=== PATIENT | female | born 2000 | race Hispanic/Latino ===

== ENCOUNTER 2023-06-26 13:47 | Emergency (ER) | payer SELFPAY ==
[2023-06-26 14:04] LABS: Absolute Eosinophils 0.1 K/uL (0-0.5); Absolute Lymphocytes (CBC) 1.5 K/uL (0.7-4.9); Absolute Monocytes 0.7 K/uL (0.1-1.3); Absolute Neutrophil 6.8 K/uL (1.8-8.0); Basophils % 0.4 % (0-1.3); Eosinophils % 1.3 % (0-4.4); Hematocrit 34.8 % (36.0-45.0); Hemoglobin 11.6 g/dL (12.0-15.0); Lymphocytes % 16.8 % (15.3-44.8); MCH 26.7 pg (27.0-35.0); MCHC 33.3 g/dL (32.0-36.0); MCV 80.3 fL (80-100); MPV 9.1 fL (7.6-11.3); Monocytes % 7.7 % (3.3-12.3); Neutrophils % 73.8 % (41.7-73.7); Platelets 225 thou/uL (152-406); RBC Red Blood Cell Count 4.34 M/uL (3.86-4.86); Red Cell Distribution Width 13.3 % (12.1-15.2)
--- NOTE | 2023-06-26 14:11 | RAD REPORT ---
EXAM DESCRIPTION: Alisa Single View06/26/2023 2:01 pm CLINICAL HISTORY: CHEST PAIN COMPARISON: None TECHNIQUE: Portable AP view of the chest. FINDINGS: The lungs are clear. No pneumothorax or effusion. The cardiomediastinal contours are unre markable. IMPRESSION: No acute cardiopulmonary process.
[2023-06-26] MEDS ORDERED: MECLIZINE HCL 12.5 MG TAB ONE (14:18)
[2023-06-26 14:29] LABS: Anion Gap 10.2 mEq/L (5.0-15.0); BUN Blood Urea Nitrogen 11 mg/dL (7-18); Bicarbonate 24 mEq/L (21-32); Glomerular Filtration Rate 116 ml/min (=/>90); Glucose Level 98 mg/dL (74-106); Magnesium 1.9 mg/dL (1.6-2.4); Potassium 3.2 mEq/L (3.5-5.1); Sodium Level 136 mEq/L (136-145)
[2023-06-26 14:35] LABS: Troponin High Sensitivity < 3.0 pg/mL (<58.9)
--- NOTE | 2023-06-26 14:44 | ER ---
Nurse's Notes [facility] Name: Chio Hough Age: 22 yrs Sex: Female : 2000 Arrival Date: 06/26/2023 Time: 13:47 Bed 16 Private MD: Diagnosis: Dizziness and giddiness Presentation: 06/25 13:50 Chief complaint: EMS states: reports chest pain that has since resolved. Coronavirus cp4 screen: Client denies travel out of the [place] in the last 14 days. At this time, the client does not indicate any symptoms associated with coronavirus-19. Ebola Screen: Patient negative for fever greater than or equal to 101.5 degrees Fahrenheit, and additional compatible Ebola Virus Disease symptoms Patient denies exposure to infectious person. Patient denies travel to an Ebola-affected area in the 21 days before illness onset. No symptoms or risks identified at this time. Initial Sepsis Screen: Does the patient meet any 2 criteria? No. Patient's initial sepsis screen is negative. Does the patient have a suspected source of infection? No. Patient's initial sepsis screen is negative. Risk Assessment: Do you want to hurt yourself or someone else? Patient reports no desire to harm self or others. Onset of symptoms was June 26, 2023. 13:50 Method Of Arrival: EMS: [facility] 4 13:50 Acuity: RAO 3 cp4 Triage Assessment: 13:51 General: Appears uncomfortable, Behavior is calm, cooperative, appropriate for age. cp4 Pain: Denies pain. Cardiovascular: Reports lightheadedness. 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 - Infectious Disease History:: Denies. CDIFF, C. Auris, ESBL, MRSA (w/in 1 year), VRE (w/in 1 year), TB, . - Social history:: Smoking status: Patient denies any tobacco usage or history of. Screenin:52 [facility] ED Fall Risk Assessment (Adult) History of falling in the last 3 months, cp4 including since admission No falls in past 3 months (0 pts) Confusion or Disorientation No (0 pts) Intoxicated or Sedated No (0 pts) Impaired Gait No (0 pts) Mobility Assist Device Used No (0 pt) Altered Elimination No (0 pt) Score/Fall Risk Level 0 - 2 = Low Risk Oriented to surroundings, Maintained a safe environment, Assessed \T\ reinforced patient's understanding of fall precautions, Hourly rounding (assess needs \T\ fall precautionary measures) done. Abuse screen: Denies threats or abuse. Nutritional screening: No deficits noted. Tuberculosis screening: No symptoms or risk factors identified. Assessment: 13:52 Reassessment: No changes from previously documented assessment. cp4 Vital Signs: 13:50 BP 137 / 81; Pulse 89; Resp 18; Temp 98; Pulse Ox 98% ; Pain 0/10; cp4 15:00 BP 133 / 74; Pulse 78; Resp 18; Pulse Ox 100% ; cp4 13:50 Pain Scale: Adult cp4 ED Course: 13:49 Patient arrived in ED. [facility] 13:49 [facility] Od[facility] 13:50 Clark Concepcion MD is Attending Physician. [facility] 13:50 Rupinder Johnson is Primary Nurse. cp4 13:51 Triage completed. cp4 13:51 Arm band placed on right wrist. Patient placed in an exam room, on a stretcher. cp4 13:52 Bed in low position. Call light in reach. Side rails up X 1. cp4 13:53 No provider procedures requiring assistance completed. Maintain EMS IV. Dressing cp4 intact. Good blood return noted. Site clean \T\ dry. Gauge \T\ site: 20 LAC. 14:01 Basic Metabolic Panel Sent. cp4 14:01 Magnesium Sent. cp4 14:03 XRAY Chest (1 view) In Process Unspecified. EDMS 14:05 EKG done, by ED staff. [email or web address] 15:01 Provided Education on: chest pain and dizziness. cp4 15:01 intact, bleeding controlled, No redness/swelling at site. Pressure dressing applied. cp4 Administered Medications: 14:21 Drug: Meclizine PO 25 mg PO once Route: PO; cp4 15:02 Follow up: Response: No adverse reaction cp4 15:00 Drug: Potassium Chloride PO 40 mEq PO once Route: PO; cp4 15:02 Follow up: Response: No adverse reaction cp4 Medication: 13:52 VIS not applicable for this client. cp4 Outcome: 14:44 Discharge ordered by MD. weaver 15:01 Discharged to home ambulatory, cp4 15:01 Condition: stable 15:01 Discharge instructions given to patient, Instructed on discharge instructions, follow up and referral plans. Demonstrated understanding of instructions, follow-up care, 15:02 Patient left the ED. cp4 Signatures: Dispatcher [employer] EDMS Jeana Odell FNP FNP 7 Rupinder Johnson cp4 Arnulfo Pfeiffer [email or web address]
--- NOTE | 2023-06-26 14:44 | EDPHYS ---
Physician Documentation [facility] Name: Chio Hough Age: 22 yrs Sex: Female : 2000 Arrival Date: 06/26/2023 Time: 13:47 Bed 16 Private MD: ED Physician Clark Concepcion HPI: 06/25 13:50 This 22 yrs old Female presents to ER via EMS with complaints of Dizziness, CP.jh7 13:50 22-year-old female with no past medical history presents to the ER complaining of jh7 dizziness. The patient reports that yesterday she had high blood pressure and that today she called 911 due to dizziness and chest pain. The chest pain resolved in route, but the patient still complains of dizziness. Denies syncope, weakness, visual changes, speech changes, shortness of breath, or any other complaints at this time.. 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 - Infectious Disease History:: Denies. CDIFF, C. Auris, ESBL, MRSA (w/in 1 year), VRE (w/in 1 year), TB, . - Social history:: Smoking status: Patient denies any tobacco usage or history of. ROS: 13:50 Constitutional: Negative for fever, chills, and weight loss, Eyes: Negative for injury, jh7 pain, redness, and discharge, Neck: Negative for injury, pain, and swelling, Cardiovascular: Negative for chest pain, palpitations, and edema, Respiratory: Negative for shortness of breath, cough, wheezing, and pleuritic chest pain, Abdomen/GI: Negative for abdominal pain, nausea, vomiting, diarrhea, and constipation, Back: Negative for injury and pain, MS/Extremity: Negative for injury and deformity, Skin: Negative for injury, rash, and discoloration, 13:50 Cardiovascular: Positive for chest pain, Negative for palpitations, 13:50 Neuro: Positive for dizziness, Negative for altered mental status, hearing loss, seizure activity, speech changes, syncope, tingling, visual changes, weakness, 13:50 All other systems are negative, Exam: 13:50 Constitutional: This is a well developed, well nourished patient who is awake, alert, jh7 and in no acute distress. Head/Face: Normocephalic, atraumatic. Eyes: Pupils equal round and reactive to light, extra-ocular motions intact. Lids and lashes normal. Conjunctiva and sclera are non-icteric and not injected. Cornea within normal limits. Periorbital areas with no swelling, redness, or edema. Neck: Trachea midline, no thyromegaly or masses palpated, and no cervical lymphadenopathy. Supple, full range of motion without nuchal rigidity, or vertebral point tenderness. No Meningismus. Respiratory: Lungs have equal breath sounds bilaterally, clear to auscultation and percussion. No rales, rhonchi or wheezes noted. No increased work of breathing, no retractions or nasal flaring. Abdomen/GI: Soft, non-tender, with normal bowel sounds. No distension or tympany. No guarding or rebound. No evidence of tenderness throughout. Back: No spinal tenderness. No costovertebral tenderness. Full range of motion. Skin: Warm, dry with normal turgor. Normal color with no rashes, no lesions, and no evidence of cellulitis. MS/ Extremity: Pulses equal, no cyanosis. Neurovascular intact. Full, normal range of motion. Neuro: Awake and alert, GCS 15, oriented to person, place, time, and situation. Motor strength 5/5 in all extremities. Sensory grossly intact. Cerebellar exam normal. Normal gait. Vital Signs: 13:50 BP 137 / 81; Pulse 89; Resp 18; Temp 98; Pulse Ox 98% ; Pain 0/10; cp4 15:00 BP 133 / 74; Pulse 78; Resp 18; Pulse Ox 100% ; cp4 13:50 Pain Scale: Adult cp4 MDM: 13:50 Patient medically screened. jh7 15:05 Differential diagnosis: abnormal EKG, acute myocardial infarction, acute pericarditis, jh7 anxiety, chest wall pain, unstable angina, Vertigo. Data reviewed: vital signs, nurses notes, lab test result(s), EKG, radiologic studies, plain films. I considered the following discharge prescriptions or medication management in the emergency department Medications were administered in the Emergency Department. See MAR. Independent interpretation of the following test(s) in the Emergency Department EKG: See my EKG interpretation above. Historians other than the Patient: EMS: EMS. Scoring Tools HEART Score: History: ECG: Age: Risk Factors: Troponin: Total Score = 0. Counseling: I had a detailed discussion with the patient and/or guardian regarding the historical points, exam findings, and any diagnostic results supporting the discharge/admit diagnosis, to return to the emergency department if symptoms worsen or persist or if there are any questions or concerns that arise at home. Response to treatment: the patient's symptoms have markedly improved after treatment. 06/25 13:50 Order name: Basic Metabolic Panel; Complete Time: 14:43 [facility] 06/25 13:50 Order name: CBC with Diff; Complete Time: 14:16 [facility] 06/25 13:50 Order name: Magnesium; Complete Time: 14:43 [facility] 06/25 13:50 Order name: Troponin HS; Complete Time: 14: [facility] 06/25 13:50 Order name: XRAY Chest (1 view); Complete Time: 14:16 [facility] 06/25 13:50 Order name: Cardiac monitoring; Complete Time: 14: [facility] 06/25 13:50 Order name: EKG - Nurse/Tech; Complete Time: 14:03 [facility] 06/25 13:50 Order name: IV Saline Lock; Complete Time: 14: [facility] 06/25 13:50 Order name: Labs collected and sent; Complete Time: 14: [facility] 06/25 13:50 Order name: O2 Per Protocol; Complete Time: 14: [facility] 06/25 13:50 Order name: O2 Sat Monitoring; Complete Time: 14:01 [facility] EC:19 Rate is 79 beats/min. Rhythm is regular. QRS [place] is Normal. ID interval is normal at [facility] 144 msec. QRS interval is normal at 102 msec. QT interval is normal at 392 msec. No Q waves. T waves are Normal. No ST changes noted. Clinical impression: NSR w/ Non-specific ST/T Changes. Administered Medications: 14:21 Drug: Meclizine PO 25 mg PO once Route: PO; cp4 15:02 Follow up: Response: No adverse reaction 4 15:00 Drug: Potassium Chloride PO 40 mEq PO once Route: PO; cp4 15:02 Follow up: Response: No adverse reaction 4 Disposition: 15:42 Co-signature as Attending Physician, Clark Concepcion MD I reviewed the patient's care rt provided by the Advanced Practice Provider and agree with the diagnosis and treatment plan. Disposition Summary: 06/26/23 14:44 Discharge Ordered Notes: Location: Home [facility] Problem: new [facility] Symptoms: are resolved [facility] Condition: Stable [facility] Diagnosis - Dizziness and giddiness [facility] Followup: [facility] - With: Private Physician - When: 2 - 3 days - Reason: Recheck today's complaints Discharge Instructions: - Discharge Summary Sheet [facility] - Nonspecific Chest Pain, Adult [facility] - Dizziness [facility] Forms: - Medication Reconciliation Form [facility] - Thank You Letter [facility] - Patient Portal Instructions [facility] - Leadership Thank You Letter [facility] Signatures: Dispatcher [employer] EDMS Jeana Odell, UNDERGROUND CONDUIT INSTALLER UNDERGROUND CONDUIT INSTALLER [facility] Clark Concepcion MD MD rt Rupinder Johnson 4 Corrections: (The following items were deleted from the chart) 13:51 13:50 Chest Single View+RAD.RAD.[email or web address] ordered. EDMS EDMS
[2023-06-26] MEDS ORDERED: POTASSIUM CL SA 10 MEQ TAB PO ONE (14:51)
[2023-06-26 15:18] VITALS: BP 133/74; TEMP 98; O2SAT 100
== END 2023-06-26 15:02 | disposition home or self-care (01) ==
LOC: ER 13:47
DX: R42 Dizziness and giddiness (principal)
CPT/HCPCS: 36415; 71045; 80048; 83735; 84484; 85025; 93005; 99284; J8597